=== PATIENT | male | born 1945 ===

== ENCOUNTER 2022-05-26 12:15 | Emergency (ER) | payer MEDICARE, BC, SELFPAY ==
[2022-05-26 12:46] VITALS: BP 119/71; PULSE 91; RESP 18; TEMP 36.1; O2SAT 95; BMI 28.7
--- NOTE | 2022-05-26 13:05 | CRLHL7_ITS ---
For Patients: As a result of the Cures Act, medical imaging exams and procedure reports are released immediately into your electronic medical record. You may view this report before your referring provider. If you have questions, please contact your health care provider. Indication: Pain Comparison: None available. Technique: AP and lateral views left femur were obtained. Findings: There is no displaced fracture or dislocation. There is prior right hip arthroplasty. There is demonstration of plate and screw fixation of femur in satisfactory position. The soft tissues are unremarkable. Impression: Postoperative changes of the right hip and femur without evidence of hardware failure or acute osseous abnormality. Dictated by Tyler Newell MD @ 05/26/2022 1:39:56 PM (Electronically Signed)
--- NOTE | 2022-05-26 13:07 | ED_ITS ---
HPI - General Adult General Time Seen by Provider: 13:07 Date Seen: 05/26/22 Chief complaint: Extremity Pain/Injury, Lower Stated complaint: Left leg pain Time Seen by Provider: 05/26/22 13:00 Source: patient Mode of arrival: ambulatory Limitations: no limitations History of Present Illness HPI narrative: Patient is a 76 male who has got multiple medical problems, most recently has had July of last year work on his left femur, apparently has a en there for fracture, he woke up today and had difficulty walking with pain in his anterior thigh, no swelling, no redness, no clotting history, no lower extremity symptoms of clotting or swelling. No trauma noted date. Patient has recently seen Dr. Hernandez and had x-rays of his leg and thigh that her reassuring Related Data Previous Rx's Medication Instructions Recorded hydrocodone 5 mg-acetaminophen 325 1 tab PO TID PRN pain #14 tabs 05/26/22 mg tablet Allergies Allergy/AdvReac Type Severity Reaction Status Date / Time Penicillins Allergy Severe Hives Verified 05/26/22 12:56 amlodepine Allergy Intermediate edema Uncoded 05/26/22 12:56 pregablin Allergy Intermediate Dizziness Uncoded 05/26/22 12:56 lisinopril Allergy Mild Dizziness Uncoded 05/26/22 12:56 Review of Systems Status of ROS: Reports: 6 or more systems reviewed and unremarkable except as noted in History and below [facility] Social History Smoking Status: Unknown if ever smoked Do you use any of these nicotine containing products: None How often do you have a drink containing alcohol: monthly or less AUDIT-C Alcohol total score: 1 Non-prescribed substance use: denies use Exam Narrative: Exam Narrative: Objective: Patient is no apparent distress He is able to bear weight on both legs Vital signs unremarkable he is afebrile His left eye shows tenderness palpation has got full range of motion of the left hip and knee no warmth erythema of his thigh area, no swelling of his thigh or lower extremity. Good distal CMS in left lower extremity. Neurologic nonfocal lower extremity. He denies back pain Const: Vital Signs, click to edit/add: Vital Signs - 24 hr 05/26/22 12:46 Temperature 97.0 F L Pulse Rate [Right Pulse Oximeter] 91 Respiratory Rate 18 Blood Pressure [Ri ght Upper Arm] 119/71 Pulse Oximetry 95 Oxygen Delivery Me thod Room Air Course Vital Signs Vital signs: Initial Vital Signs Temperature 97.0 F L 05/26/22 12:46 Temperature Source Temporal Artery Scan 05/26/22 12:46 Pulse Rate 91 05/26/22 12:46 Pulse Rhythm 05/26/22 12:46 Respiratory Rate 18 05/26/22 12:46 Blood Pressure 119/71 05/26/22 12:46 Blood Pressure Mean 87 05/26/22 12:46 Blood Pressure Position Sitting 05/26/22 12:46 Pulse Oximetry 95 05/26/22 12:46 Oxygen Delivery Method 05/26/22 12:46 Vital Signs Temperature 97.0 F L 05/26/22 12:46 Pulse Rate 91 05/26/22 12:46 Respiratory Rate 18 05/26/22 12:46 Blood Pressure 119/71 05/26/22 12:46 Pulse Oximetry 95 05/26/22 12:46 Oxygen Delivery Method 05/26/22 12:46 Temperature 97.0 F L 05/26/22 12:46 Pulse Rate 91 05/26/22 12:46 Respiratory Rate 18 05/26/22 12:46 Blood Pressure 119/71 05/26/22 12:46 Pulse Oximetry 95 05/26/22 12:46 Oxygen Delivery Method 05/26/22 12:46 Medical Decision Making MDM Narrative Medical decision making narrative: Patient has left thigh pain he has had complex injury apparently to his left thigh with a en. Will repeat an x-ray of his thigh. Will give him [place] 5/325 mg orally to see him if it helps with his discomfort. Disposition pending findings above Addendum: X-ray by my review shows his lateral tibial plate to be in good condition, his hip replacement looks adequate and non dislocated. Will give him [place] to take home 5/325 as needed for pain, update his regular doctor within the next couple of days, light activity, ice to the thigh area. He does not have any swelling of the leg consistent with a DVT, no redness or warmth consistent with infection, recommend simply observation and recheck with primary care in 48 hours certainly sooner change concerns or return to the ED thanks Discharge Plan Discharge Clinical Impression: Acute pain of left thigh Patient Disposition: Home w/ Parent or Adult Condition: Stable Additional Instructions: Light activity, ice to the anterior left thigh, pain medicine as needed and caution of sedative effect of the pain medicine., update primary care in the next 24-48 hours, return to ED problems or concerns difficulty ambulating or other problems Activity Level: Light activity Discharge Diet: Regular Prescriptions: New hydrocodone-acetaminophen 5-325 mg tablet 1 tab PO TID PRN (Reason: pain) Qty: 14 0RF Stand Alone Forms: [employer] Info Instructions
[2022-05-26] MEDS: HYDROCODONE-ACETAMIN 5-325 MG 1 TAB PO (13:15)
== END 2022-05-26 14:37 | disposition home or self-care (01) ==
LOC: ED 13:30
PROVIDERS: Emergency Provider Family Medicine; PCP Family Medicine
DX: M79.652 Pain in left thigh (principal)
CPT/HCPCS: 73552; 99283; 99284; A9270